=== PATIENT | female | born 1970 | race African-American/Black ===

== ENCOUNTER 2021-12-23 13:52 | Inpatient (IN) | payer OTHER ==
[2021-12-23] MEDS ORDERED: SODIUM CHLORIDE 0.9% 500 ML INFUS.BAG IV ONE (15:49)
[2021-12-23] MEDS ORDERED: METOCLOPRAMIDE HCL INJECTION 10 MG/2 ML VIAL IVPB ONE (15:49)
[2021-12-23 16:24] LABS: BASO % 1.3 % (0-2.0); EOS % 0.3 % (0-4.5); HEMATOCRIT 40.7 % (32.4-45.2); HEMOGLOBIN 13.1 GM/dL (10.7-15.3); MCH 27.4 pg (25.7-33.7); MCHC 32.3 g/dl (32.0-36.0); MEAN PLT VOLUME 9.7 fl (7.5-11.1); MONO % 18.6 % (3.8-10.2); NEUT % 31.8 % (42.8-82.8); PLATELET COUNT 213 10^3/uL (134-434); RBC 4.79 M/mm3 (3.60-5.2); RDW 13.1 % (11.6-15.6); WHITE BLOOD COUNT 3.1 K/mm3 (4.0-10.0)
[2021-12-23 16:41] LABS: INR 1.34 (0.83-1.09); PROTHROMBIN TIME (PATIENT) 15.5 SEC (9.7-13.0)
[2021-12-23 16:44] LABS: ACTIVATED PTT 38.9 SECONDS (25.2-36.5)
[2021-12-23 17:22] LABS: ALBUMIN 4.2 g/dl (3.4-5.0); BLOOD UREA NITROGEN 9.7 mg/dL (7-18); CALCIUM 9.6 mg/dL (8.5-10.1)
[2021-12-23 17:25] LABS: CREATININE 0.9 mg/dL (0.55-1.3)
[2021-12-23 17:27] LABS: BILIRUBIN,TOTAL 0.4 mg/dL (0.2-1); TOT PROT 8.2 g/dl (6.4-8.2)
[2021-12-23] MEDS ORDERED: ASPIRIN 81 MG CHEWABLE TABLETS PO ONE (20:15)
[2021-12-23] MEDS ORDERED: FAMOTIDINE 20 MG TABLET PO ONE (20:15)
[2021-12-23] MEDS ORDERED: ACETAMINOPHEN 325 MG TABLET (FP) PO ONE (20:15)
[2021-12-23] MEDS ORDERED: MAG HYDROX/AL HYDROX/SIMETH -MYLANTA- ORAL SUSPENSION PO ONE (20:16)
[2021-12-23] MEDS ORDERED: ACETAMINOPHEN 325 MG TABLET (FP) ONE (20:27)
[2021-12-23] MEDS ORDERED: ASPIRIN 81 MG CHEWABLE TABLETS ONE (20:27)
[2021-12-23] MEDS ORDERED: FAMOTIDINE 20 MG TABLET ONE (20:27)
[2021-12-23] MEDS ORDERED: MAG HYDROX/AL HYDROX/SIMETH 30 ML UNIT-DOSE CUP ONE (20:27)
[2021-12-23] MEDS ORDERED: hydrALAZINE HCL 25 MG TABLET (FP) PO ONE (21:15)
[2021-12-23] MEDS ORDERED: hydrALAZINE HCL 25 MG TABLET (FP) ONE (21:23)
[2021-12-23] MEDS ORDERED: oxyCODONE HCL 5 MG TABLET PO ONE (22:06)
[2021-12-23] MEDS ORDERED: APIXABAN 5 MG TABLET ONE (22:48)
[2021-12-23] MEDS ORDERED: oxyCODONE HCL 5 MG TABLET ONE (22:49)
[2021-12-23] MEDS: APIXABAN 5 MG TABLET PO SCH (22:59)
[2021-12-24] MEDS ORDERED: IBUPROFEN 400 MG TABLET (FP) PO ONE (02:41)
[2021-12-24] MEDS ORDERED: oxyCODONE HCL 5 MG TABLET PO SCH (05:00)
[2021-12-24 05:27] VITALS: BMI 32.8
[2021-12-24] MEDS: hydrALAZINE HCL 25 MG TABLET (FP) PO SCH ×2 (05:44→14:55)
[2021-12-24] MEDS ORDERED: oxyCODONE HCL 5 MG TABLET PO PRN (05:57)
[2021-12-24] MEDS: INSULIN SLIDING SCALE (NOVOLOG) 1 VIAL SQ SCH ×2 (06:44→11:38)
[2021-12-24 07:29] LABS: BASO % 0.5 % (0-2.0); EOS % 0.5 % (0-4.5); HEMOGLOBIN 12.2 GM/dL (10.7-15.3); LYMPH % 53.1 % (8-40); MCH 27.2 pg (25.7-33.7); MCHC 32.2 g/dl (32.0-36.0); MEAN CELL VOLUME 84.5 fl (80-96); MONO % 17.4 % (3.8-10.2); NEUT % 28.5 % (42.8-82.8); PLATELET COUNT 198 10^3/uL (134-434); WHITE BLOOD COUNT 3.5 K/mm3 (4.0-10.0)
[2021-12-24 07:48] LABS: INR 1.36 (0.83-1.09); PROTHROMBIN TIME (PATIENT) 15.7 SEC (9.7-13.0)
[2021-12-24 07:50] LABS: ACTIVATED PTT 36.6 SECONDS (25.2-36.5)
[2021-12-24 07:57] LABS: CALCIUM 8.5 mg/dL (8.5-10.1)
[2021-12-24 07:58] LABS: ALBUMIN 3.5 g/dl (3.4-5.0); BLOOD UREA NITROGEN 10.8 mg/dL (7-18); MAGNESIUM 2.2 mg/dL (1.8-2.4)
[2021-12-24 08:01] LABS: CREATININE 0.8 mg/dL (0.55-1.3); HDL CHOLESTEROL 46 mg/dL (40-60)
[2021-12-24 08:03] LABS: BILIRUBIN,TOTAL 0.4 mg/dL (0.2-1); CHOLESTEROL 118 mg/dL (50-200); TOT PROT 6.5 g/dl (6.4-8.2)
[2021-12-24 08:04] LABS: LDL CHOLESTEROL (ONLY SJRH) 66 mg/dL (5-100); TRIGLYCERIDES 127 mg/dL (0-150)
[2021-12-24] MEDS ORDERED: LEVOTHYROXINE NA 25 MCG TABLET (FP) PO SCH (09:15)
[2021-12-24] MEDS: APIXABAN 5 MG TABLET PO SCH (09:32)
[2021-12-24] MEDS ORDERED: FAMOTIDINE 20 MG TABLET PO ONE (09:32)
[2021-12-24] MEDS: TOPIRAMATE 25 MG TABLET PO SCH ×2 (09:32→09:38)
[2021-12-24] MEDS ORDERED: ONDANSETRON 4 MG TABLET PO ONE (09:34)
[2021-12-24] MEDS ORDERED: ONDANSETRON *ODT* 4 MG TABLET SL ONE (09:35)
[2021-12-24] MEDS ORDERED: AMITRIPTYLINE HCL 25 MG TABLET PO SCH (10:00)
[2021-12-24] MEDS ORDERED: CARVEDILOL 6.25 MG TABLET (FP) PO SCH (10:00)
[2021-12-24] MEDS ORDERED: amLODIPine BESYLATE 5 MG TABLET (FP) PO SCH (10:00)
[2021-12-24] MEDS ORDERED: SACUBITRIL/VALSARTAN 97 MG-103 MG TABLET PO SCH (10:00)
[2021-12-24 15:48] VITALS: BP 154/87; PULSE 60; TEMP 98.2
[2021-12-24 16:08] LABS: SARS-CoV-2 NAA Detected (Not Detected)
[2021-12-24 18:27] LABS: URINE APPEARANCE CLEAR; URINE BILIRUBIN NEGATIVE (NEGATIVE); URINE COLOR YELLOW; URINE GLUCOSE (UA) NEGATIVE (NEGATIVE); URINE KETONE TRACE (NEGATIVE); URINE LEUK ESTERASE NEGATIVE (NEGATIVE); URINE NITRITE NEGATIVE (NEGATIVE); URINE PROTEIN TRACE (NEGATIVE); URINE UROBILINOGEN 0.2 mg/dL (0.2-1.0)
[2021-12-24] MEDS ORDERED: ROSUVASTATIN CA 10 MG TABLET PO SCH (22:00)
== END 2021-12-24 16:56 | disposition home or self-care (01) | DRG 313 ==
LOC: JER 13:52 → JERBED 20:16 → OBSVTOIN 21:45 → J4S 12-24 04:19
PROVIDERS: ADMIT Internal Medicine; ATTEND Internal Medicine
DX: R07.89 Other chest pain (principal); U07.1 COVID-19; I51.81 Takotsubo syndrome; J98.11 Atelectasis; E66.9 Obesity, unspecified; I10 Essential (primary) hypertension; E78.5 Hyperlipidemia, unspecified; R51.9 Headache, unspecified; K76.89 Other specified diseases of liver; Z68.32 Body mass index [BMI] 32.0-32.9, adult; E11.9 Type 2 diabetes mellitus without complications; Z86.718 Personal history of other venous thrombosis and embolism; Z86.711 Personal history of pulmonary embolism
CPT/HCPCS: 36415; 71045-TC-FY; 71250-TC; 80053; 80061; 81003; 82962; 83735; 84100; 84439; 84443; 84484; 85025; 85610; 85730; 87086; 93005; 93010; 93306-TC; 99285-25; C9803-CS; G0378; Q0162; U0003; U0005

== ENCOUNTER 2022-01-04 23:04 | Observation (INO) | payer OTHER ==
[2022-01-04 23:23] VITALS: BMI 32.3
[2022-01-05] MEDS ORDERED: ASPIRIN 81 MG CHEWABLE TABLETS PO ONE (02:08)
[2022-01-05] MEDS ORDERED: ASPIRIN 81 MG CHEWABLE TABLETS ONE (02:22)
[2022-01-05 03:07] LABS: BASO % 0.7 % (0-2.0); EOS % 0.8 % (0-4.5); HEMATOCRIT 38.3 % (32.4-45.2); HEMOGLOBIN 12.7 GM/dL (10.7-15.3); LYMPH % 38.4 % (8-40); MCH 27.5 pg (25.7-33.7); MCHC 33.1 g/dl (32.0-36.0); MONO % 14.5 % (3.8-10.2); NEUT % 45.6 % (42.8-82.8); PLATELET COUNT 248 10^3/uL (134-434); RBC 4.61 M/mm3 (3.60-5.2); RDW 13.1 % (11.6-15.6); WHITE BLOOD COUNT 4.6 K/mm3 (4.0-10.0)
[2022-01-05 03:21] LABS: INR 1.4 (0.83-1.09); PROTHROMBIN TIME (PATIENT) 16.2 SEC (9.7-13.0)
[2022-01-05 03:23] LABS: ACTIVATED PTT 38.5 SECONDS (25.2-36.5)
[2022-01-05 03:26] LABS: CALCIUM 9.6 mg/dL (8.5-10.1)
[2022-01-05 03:27] LABS: BLOOD UREA NITROGEN 15.2 mg/dL (7-18); MAGNESIUM 2.5 mg/dL (1.8-2.4)
[2022-01-05 03:30] LABS: CREATININE 0.9 mg/dL (0.55-1.3)
[2022-01-05 03:32] LABS: BILIRUBIN,TOTAL 0.3 mg/dL (0.2-1); TOT PROT 7.2 g/dl (6.4-8.2)
[2022-01-05] MEDS ORDERED: KETOROLAC TROMETHAMINE 15 MG/ML VIAL IVPUSH ONE (04:16)
[2022-01-05] MEDS ORDERED: KETOROLAC TROMETHAMINE 15 MG/ML VIAL ONE (04:17)
[2022-01-05] MEDS ORDERED: NITROGLYCERIN SUBLINGUAL 1/150 0.4 MG TAB SL ONE (05:48)
[2022-01-05] MEDS ORDERED: LIDOCAINE 5% TOPICAL PATCH TP ONE (06:17)
[2022-01-05 06:26] VITALS: BP 137/81; PULSE 68; TEMP 97.9
[2022-01-05] MEDS ORDERED: LIDOCAINE 5% TOPICAL PATCH ONE (06:35)
[2022-01-05] MEDS: INSULIN SLIDING SCALE (NOVOLOG) 1 VIAL SQ SCH ×2 (09:01→11:19)
[2022-01-05] MEDS ORDERED: PANTOPRAZOLE 40 MG TABLET PO ONE (09:03)
[2022-01-05] MEDS ORDERED: LEVOTHYROXINE NA 25 MCG TABLET (FP) ONE (09:04)
[2022-01-05] MEDS ORDERED: CARVEDILOL 6.25 MG TABLET (FP) ONE (09:05)
[2022-01-05] MEDS ORDERED: APIXABAN 5 MG TABLET ONE (09:05)
[2022-01-05] MEDS ORDERED: PATIENT'S OWN MEDICATION (NON-FORMULARY) (Rimegepant Sulfate [Nurtec Odt] 75 MG Tab.Rapdis PO SCH (10:00)
[2022-01-05] MEDS ORDERED: CARVEDILOL 6.25 MG TABLET (FP) PO SCH (10:00)
[2022-01-05] MEDS ORDERED: LEVOTHYROXINE NA 25 MCG TABLET (FP) PO SCH (10:00)
[2022-01-05] MEDS ORDERED: PANTOPRAZOLE 40 MG TABLET PO SCH (10:00)
[2022-01-05] MEDS ORDERED: APIXABAN 5 MG TABLET PO SCH (10:00)
[2022-01-05] MEDS ORDERED: SACUBITRIL/VALSARTAN 97 MG-103 MG TABLET PO SCH (10:00)
[2022-01-05] MEDS ORDERED: AMITRIPTYLINE HCL 25 MG TABLET PO SCH (10:00)
[2022-01-05] MEDS ORDERED: ACETAMINOPHEN 325 MG TABLET (FP) PO PRN (11:10)
[2022-01-05] MEDS ORDERED: ACETAMINOPHEN 325 MG TABLET (FP) ONE (11:15)
[2022-01-05] MEDS ORDERED: hydrALAZINE HCL 50 MG TABLET (FP) PO SCH (14:00)
[2022-01-05] MEDS ORDERED: LIDOCAINE PATCH REMOVAL MC SCH (22:00)
[2022-01-05] MEDS ORDERED: ROSUVASTATIN CA 10 MG TABLET PO SCH (22:00)
== END 2022-01-05 16:19 | disposition home or self-care (01) ==
LOC: JER 23:04 → JERBED 01-05 05:16
PROVIDERS: ADMIT Hospitalist; ATTEND Internal Medicine
PROC: 3E0333Z Introduction of Anti-inflammatory into Peripheral Vein, Percutaneous Approach (ICD-10-PCS; principal; 2022-01-05)
DX: I11.9 Hypertensive heart disease without heart failure (principal); I43 Cardiomyopathy in diseases classified elsewhere; Z86.718 Personal history of other venous thrombosis and embolism; Z79.01 Long term (current) use of anticoagulants; E11.9 Type 2 diabetes mellitus without complications; G43.909 Migraine, unspecified, not intractable, without status migrainosus; E78.5 Hyperlipidemia, unspecified; Z86.711 Personal history of pulmonary embolism; E66.8 Other obesity; Z68.32 Body mass index [BMI] 32.0-32.9, adult; E03.9 Hypothyroidism, unspecified; I34.1 Nonrheumatic mitral (valve) prolapse; I25.2 Old myocardial infarction
CPT/HCPCS: 36415; 71046-TC-FY; 80053; 83735; 84484; 85025; 85610; 85730; 93005; 93010; 96374; 99285-25; C9803-CS; G0378; U0003; U0005

== ENCOUNTER 2022-05-04 00:11 | Observation (INO) | payer OTHER ==
[2022-05-04 00:49] VITALS: BMI 30.7
[2022-05-04] MEDS ORDERED: ACETAMINOPHEN 1000 MG/100 ML BAG IVPB ONE (02:05)
[2022-05-04] MEDS ORDERED: GABAPENTIN 100 MG CAPSULE PO ONE (02:12)
[2022-05-04] MEDS ORDERED: GABAPENTIN 100 MG CAPSULE ONE (02:25)
[2022-05-04] MEDS ORDERED: ACETAMINOPHEN INJECTION 100 ML IVPB ONE (02:26)
[2022-05-04 02:57] LABS: BASO % 0.8 % (0-2.0); EOS % 0.9 % (0-4.5); HEMATOCRIT 35.9 % (32.4-45.2); HEMOGLOBIN 11.6 GM/dL (10.7-15.3); LYMPH % 32.2 % (8-40); MCH 26.4 pg (25.7-33.7); MCHC 32.2 g/dl (32.0-36.0); MEAN CELL VOLUME 81.9 fl (80-96); MEAN PLT VOLUME 9.4 fl (7.5-11.1); MONO % 11.6 % (3.8-10.2); NEUT % 54.5 % (42.8-82.8); PLATELET COUNT 258 10^3/uL (134-434); RBC 4.38 M/mm3 (3.60-5.2); RDW 13.5 % (11.6-15.6); WHITE BLOOD COUNT 6.1 K/mm3 (4.0-10.0)
[2022-05-04 03:06] LABS: INR 1.74 (0.83-1.09); PROTHROMBIN TIME (PATIENT) 20.1 SEC (9.7-13.0)
[2022-05-04 03:08] LABS: ACTIVATED PTT 38.1 SECONDS (25.2-36.5)
[2022-05-04 03:11] LABS: ALBUMIN 4.1 g/dl (3.4-5.0); BLOOD UREA NITROGEN 12.5 mg/dL (7-18); CALCIUM 9.7 mg/dL (8.5-10.1)
[2022-05-04 03:14] LABS: CREATININE 0.9 mg/dL (0.55-1.3)
[2022-05-04 03:16] LABS: BILIRUBIN,TOTAL 0.3 mg/dL (0.2-1); TOT PROT 7.6 g/dl (6.4-8.2)
[2022-05-04 03:19] LABS: N-TERMINAL BNP 66.2 pg/ml (5-125)
[2022-05-04] MEDS ORDERED: HYDROmorphone HCL 2 MG TABLET ONE (04:47)
[2022-05-04] MEDS ORDERED: LEVOTHYROXINE NA 25 MCG TABLET (FP) PO SCH (07:00)
[2022-05-04] MEDS ORDERED: LEVOTHYROXINE NA 25 MCG TABLET (FP) ONE (07:06)
[2022-05-04 07:27] VITALS: RESP 16; TEMP 97.8
[2022-05-04] MEDS ORDERED: ACETAMINOPHEN 325 MG TABLET (FP) PO PRN (09:00)
[2022-05-04] MEDS ORDERED: APIXABAN 5 MG TABLET ONE (09:58)
[2022-05-04] MEDS ORDERED: ACETAMINOPHEN 325 MG TABLET (FP) ONE (09:59)
[2022-05-04] MEDS ORDERED: APIXABAN 5 MG TABLET PO SCH (10:00)
[2022-05-04] MEDS ORDERED: CARVEDILOL 6.25 MG TABLET (FP) PO SCH (10:21)
[2022-05-04] MEDS ORDERED: HYDROmorphone HCl 2 MG/ML VIAL IVPUSH PRN (10:30)
[2022-05-04] MEDS ORDERED: amLODIPine BESYLATE 5 MG TABLET (FP) PO SCH (10:30)
[2022-05-04] MEDS ORDERED: amLODIPine BESYLATE 10 MG TABLET (FP) ONE (10:40)
[2022-05-04] MEDS ORDERED: CARVEDILOL 12.5 MG TABLET (FP) ONE (10:40)
[2022-05-04] MEDS ORDERED: HYDROmorphone HCl 2 MG/ML VIAL ONE (10:40)
[2022-05-04 10:49] VITALS: BP 141/90; PULSE 63
[2022-05-04] MEDS ORDERED: ROSUVASTATIN CA 10 MG TABLET PO SCH (22:00)
== END 2022-05-04 16:12 | disposition left against medical advice (07) ==
LOC: JER 00:11 → JERBED 02:53
PROVIDERS: ADMIT Internal Medicine; ATTEND Internal Medicine
PROC: 3E033NZ Introduction of Analgesics, Hypnotics, Sedatives into Peripheral Vein, Percutaneous Approach (ICD-10-PCS; principal; 2022-05-04)
DX: U07.1 COVID-19 (principal); I51.81 Takotsubo syndrome; E11.9 Type 2 diabetes mellitus without complications; E78.5 Hyperlipidemia, unspecified; I42.9 Cardiomyopathy, unspecified; M79.89 Other specified soft tissue disorders; Z79.01 Long term (current) use of anticoagulants; Z86.711 Personal history of pulmonary embolism; R07.9 Chest pain, unspecified; Z96.652 Presence of left artificial knee joint; Z20.822 Contact with and (suspected) exposure to COVID-19; I10 Essential (primary) hypertension; E66.8 Other obesity; Z86.718 Personal history of other venous thrombosis and embolism; Z68.30 Body mass index [BMI] 30.0-30.9, adult; Z86.16 Personal history of COVID-19
CPT/HCPCS: 36415; 71045-TC-FY; 73562-TC-LT-FY; 80053; 82962; 83880; 84484; 84703; 85025; 85610; 85730; 93005; 93010; 93306-TC; 93971-TC; 96374; 96375; 99285-25; C9803-CS; G0378; U0003; U0005